=== PATIENT | female | born 1980 | race Caucasian/White ===

== ENCOUNTER 2020-03-03 02:48 | Emergency (ER) | payer OTHER ==
[~2020-03-03] VITALS: Ht 167.6 cm; Wt 81.6 kg
[2020-03-03 02:55] VITALS: Ht 167.6 cm; Wt 81.6 kg
[2020-03-03 03:00] VITALS: BP 133/79
== END 2020-03-03 03:00 | disposition other institution (70) ==
LOC: ED 02:48
DX: Z02.89 Encounter for other administrative examinations (principal)